=== PATIENT | female | born 1975 | race Caucasian/White ===

== ENCOUNTER 2021-03-17 09:18 | Day surgery (SDC) | payer BC ==
--- NOTE | 2021-03-17 09:06 | PCM.PREANE ---
Preanesthetic Assessment - Anesthesia/Transfusion/Family Hx Anesthesia History: Prior Anesthesia Without Reaction Transfusion History: No Prior Transfusion(s) - Review of Systems General: No Symptoms Pulmonary: No Symptoms Cardiovascular: No Symptoms Gastrointestinal: No Symptoms Neurological: Headache Other: Reports: None - Physical Assessment NPO Status Date: 03/17/21 NPO Status Time: 00:00 Height: 5 ft 3 in Weight: 189 lb ASA Class: 2 Mental Status: Alert & Oriented x3 Airway Class: Mallampati = 2 Dentition: Reports: Normal Dentition ROM/Head Extension: Full Lungs: Clear to Auscultation, Normal Respiratory Effort Cardiovascular: Regular Rate, Regular Rhythm - Lab Values: Laboratory Last Values WBC 6.71 K/uL (4.0-11.0) 03/17/21 08: RBC 4.63 M/uL (4.30-5.90) 03/17/21 08:26 Hgb 12.9 g/dL (12.0-16.0) 03/17/21 08: Hct 38.6 % (36.0-46.0) 03/17/21 08: MCV 83.4 fL (80.0-98.0) 03/17/21 08: MCH 27.9 pg (27.0-32.0) 03/17/21 08: MCHC 33.4 g/dL (31.0-37.0) 03/17/21 08:26 RDW Std Deviation 43.9 fl (28.0-62.0) 03/17/21 08:26 RDW Coeff of Jack 14 % (11.0-15.0) 03/17/21 08:26 Plt Count 327 K/uL (150-400) 03/17/21 08:26 MPV 10.40 fL (7.40-12.00) 03/17/21 08:26 Neut % (Auto) 57.5 % (48.0-80.0) 03/17/21 08: Lymph % (Auto) 31.9 % (16.0-40.0) 03/17/21 08:26 [place] % (Auto) 7.0 % (0.0-15.0) 03/17/21 08: Eos % (Auto) 3.0 % (0.0-7.0) 03/17/21 08:26 Baso % (Auto) 0.6 % (0.0-1.5) 03/17/21 08:26 Neut # (Auto) 3.9 K/uL (1.4-5.7) 03/17/21 08:26 Lymph # (Auto) 2.1 K/uL (0.6-2.4) 03/17/21 08:26 [place] # (Auto) 0.5 K/uL (0.0-0.8) 03/17/21 08:26 Eos # (Auto) 0.2 K/uL (0.0-0.7) 03/17/21 08:26 Baso # (Auto) 0.0 K/uL (0.0-0.1) 03/17/21 08:26 Nucleated RBC % 0.0 /100WBC 03/17/21 08:26 Nucleated RBCs # 0 K/uL 03/17/21 08:26 - Allergies Allergies/Adverse Reactions: Allergies Allergy/AdvReac Type Severity Reaction Status Date / Time No Known Allergies Allergy Verified 03/13/21 10:00 - Blood Blood Available: No - Acknowledgements Anesthesia Type Planned: General Anesthesia Pt an Appropriate Candidate for the Planned Anesthesia: Yes Alternatives and Risks of Anesthesia Discussed w Pt/Guardian: Yes Pt/Guardian Understands and Agrees with Anesthesia Plan: Yes PreAnesthesia Questionnaire HEENT History: Reports: Other (See Below) Other HEENT History: wears glasses Cardiovascular History: Reports: None Respiratory History: Reports: None Gastrointestinal History: Reports: Other (See Below) Other Gastrointestinal History: occasional heartburn Genitourinary History: Reports: Other (See Below) Other Genitourinary History: stress incontinence [employer]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: Musculoskeletal History: Reports: Fracture Neurological History: Reports: Migraines Psychiatric History: Reports: None Endocrine/Metabolic History: Reports: Obesity/BMI 30+ Hematologic History: Reports: None Immunologic History: Reports: None Oncologic (Cancer) History: Reports: None Dermatologic History: Reports: None - Past Surgical History Head Surgeries/Procedures: Reports: None HEENT Surgical History: Reports: Eye Surgery Other HEENT Surgeries/Procedures: hx ear surgery and eye surgery Cardiovascular Surgical History: Reports: None Respiratory Surgical History: Reports: None GI Surgical History: Reports: Cholecystectomy Female Surgical History: Reports: None Endocrine Surgical History: Reports: None Neurological Surgical History: Reports: None Musculoskeletal Surgical History: Reports: Other (See Below) Other Musculoskeletal Surgeries/Procedures:: sx for repair of fx right ankle Oncologic Surgical History: Reports: None Dermatological Surgical History: Reports: None - SUBSTANCE USE Tobacco Use Status *Q: Former Tobacco User Tobacco Use Within Last Twelve Months: No Recreational Drug Use History: No - HOME MEDS Home Medications: Home Meds Cholecalciferol (Vitamin D3) [Vitamin D3] 5,000 units PO DAILY 03/13/21 [History] Nutrafol 1 tab PO DAILY 03/13/21 [History] - CURRENT (IN HOUSE) MEDS Current Meds: Current Medications Albuterol (Albuterol 0.083% 2.5 Mg/3 Ml Neb Soln) 2.5 mg NEB ONETIME PRN PRN Reason: Wheezing Droperidol (Droperidol 5 Mg/2 Ml Sdv) 0.625 mg IVPUSH ONETIME PRN PRN Reason: Nausea/Vomiting Fentanyl (Fentanyl 100 Mcg/2 Ml Sdv) 50 mcg IVPUSH Q5M PRN PRN Reason: Pain (mild 1-3) Hydromorphone HCl (Hydromorphone 1 Mg/Ml Syringe) 1 mg IVPUSH Q10M PRN PRN Reason: Pain (moderate 4-6) Lactated Ringer's (Ringers, Lactated) 1,000 mls @ 125 mls/hr IV ASDIRECTED HAYLIE Metoclopramide HCl (Metoclopramide 10 Mg/2 Ml Sdv) 10 mg IVPUSH ONETIME PRN PRN Reason: Nausea/Vomiting Morphine Sulfate (Morphine 2 Mg/Ml Syringe) 2 mg IVPUSH Q10M PRN PRN Reason: Pain (severe 7-10) Naloxone HCl (Naloxone 0.4 Mg/Ml Syringe) 0.1 mg IVPUSH ASDIRECTED PRN PRN Reason: Respiratory Depression Ondansetron HCl (Ondansetron 4 Mg/2 Ml Sdv) 4 mg IVPUSH ONETIME PRN PRN Reason: Nausea/Vomiting Sodium Chloride (Sodium Chloride 0.9% 10 Ml Syringe) 10 ml FLUSH ASDIRECTED PRN PRN Reason: Keep Vein Open Sodium Chloride (Sodium Chloride 0.9% 2.5 Ml Syringe) 2.5 ml FLUSH ASDIRECTED PRN PRN Reason: Keep Vein Open Sodium Chloride (Sodium Chloride 0.9% 10 Ml Sdv) 10 ml IV ASDIRECTED PRN PRN Reason: IV Use Discontinued Medications Propofol (Diprivan 100 Ml) Confirm Administered Dose 100 mls @ as directed .ROUTE .STK-MED ONE Stop: 03/17/21 07:39 Cefazolin Sodium/Dextrose 2 gm (/ Premix) 50 mls @ 100 mls/hr IV ONETIME ONE Stop: 03/17/21 08:33 Lidocaine HCl (Lidocaine 2% 100 Mg/5 Ml Syringe) Confirm Administered Dose 100 mg .ROUTE .STK-MED ONE Stop: 03/17/21 07:38 Ondansetron HCl (Ondansetron 4 Mg/2 Ml Sdv) Confirm Administered Dose 4 mg .ROUTE .STK-MED ONE Stop: 03/17/21 08:31 Ondansetron HCl (Ondansetron 4 Mg/2 Ml Sdv) Confirm Administered Dose 4 mg .ROUTE .STK-MED ONE Stop: 03/17/21 08:31 Scopolamine (Scopolamine 1.5 Mg Transdermal Patch) Confirm Administered Dose 1.5 mg .ROUTE .STK-MED ONE Stop: 03/17/21 07:38
[~2021-03-17 09:18] MED LIST: Albuterol 0.083% 2.5 MG/3 ML Neb Soln NEB PRN; HYDROmorphone 1 MG/ML Syringe IVPUSH PRN; Lactated Ringers 1,000 ML IV SCH; Lidocaine 2% 100 MG/5 ML Syringe ONE; Metoclopramide 10 MG/2 ML SDV IVPUSH PRN; Morphine 2 MG/ML SYRINGE IVPUSH PRN; Naloxone 0.4 MG/ML Syringe IVPUSH PRN; Ondansetron 4 MG/2 ML SDV IVPUSH PRN; Ondansetron 4 MG/2 ML SDV ONE; Scopolamine 1.5 MG Transdermal Patch ONE; Sodium Chloride 0.9% 10 ML SDV IV PRN; Sodium Chloride 0.9% 10 ML Syringe FLUSH PRN; Sodium Chloride 0.9% 2.5 ML Syringe FLUSH PRN; ceFAZolin 2 GM in Premix Bag 1 BAG IV ONE; fentaNYL 100 MCG/2 ML SDV IVPUSH PRN; propofoL 100 ML ONE
[2021-03-17] MEDS ORDERED: Bupivacaine 0.25% 10 ML SDV ONE (11:17)
[2021-03-17] MEDS ORDERED: Bupivacaine 25%/EPINEPHrine/PF 30 ML ONE (11:21)
[2021-03-17] MEDS ORDERED: Midazolam 1 MG/ML 2 ML SDV ONE (13:15)
[2021-03-17] MEDS ORDERED: Octyl 2-Cyanoacrylate 1 Tube ONE (13:17)
[2021-03-17] MEDS ORDERED: Neomycin/Polymyxin B Bladder Irrigation 1 ML Amp ONE (13:17)
[2021-03-17] MEDS ORDERED: Ondansetron 4 MG/2 ML SDV ONE (14:34)
[2021-03-17] MEDS ORDERED: Ketorolac 30 MG/ML SDV ONE (14:34)
[2021-03-17] MEDS ORDERED: fentaNYL 100 MCG/2 ML SDV ONE (14:39)
--- NOTE | 2021-03-17 15:17 | PCM.OPNOTE ---
<Andreina Llamas - Last Filed: 03/17/21 15:24> - General Post-Op/Procedure Note Date of Surgery/Procedure: 03/17/21 Operative Procedure(s): Anterior posterior colporraphy with single incision mid urethral sling Pre Op Diagnosis: Vaginal prolapse Post-Op Diagnosis: Vaginal Prolapse Anesthesia Technique: General LMA Primary Surgeon: Mara Chacko Concrete Conveyor Operator: Andreina Llamas Fluid Replacement, Intraop: 600 EBL in mLs: 250 Complications: none Condition: Good Free Text/Narrative:: 42-year-old female presented due to vaginal prolapse. S/p incision site mid urethral sling. Surgery was uncomplicated. <Mara Chacko - Last Filed: 03/17/21 16:45> - General Post-Op/Procedure Note Operative Procedure(s): Single incision midurethral sling. Anterior Colporraphy. Posterior Colporraphy Findings: Normal sized anteverted Uterus Grade 1 Cystoceole Grade 1 rectoceole Anesthesia Provider: Damion Finney Pathology: vaginal wall Free Text/Narrative:: Intake & Output 03/17/21 03/17/21 03/17/21 06:59 14:59 22:59 Intake Total 600 Balance 600 Cystoceole , Rectocele and Stress incontinence
--- NOTE | 2021-03-17 15:17 | PCM.POSTAN ---
POST ANESTHESIA ASSESSMENT - MENTAL STATUS Mental Status: Alert, Oriented, Somnolent - VITAL SIGNS Vital Signs: Last Vital Signs Temp 98.2 F 03/17/21 09:45 Pulse 74 03/17/21 09:45 Resp 16 03/17/21 09:45 BP 132/85 03/17/21 09:45 Pulse Ox 98 03/17/21 09:45 - RESPIRATORY Respiratory Status: Respiratory Rate WNL, Airway Patent, O2 Saturation Stable - CARDIOVASCULAR CV Status: Pulse Rate WNL, Blood Pressure Stable - GASTROINTESTINAL GI Status: No Symptoms - POST OP HYDRATION Hydration Status: Adequate & Stable
--- NOTE | 2021-03-17 15:18 | PCM48HPAN ---
Post Anesthesia Note - EVALUATION WITHIN 48HRS OF ANESTHETIC Vital Signs in Normal Range: Yes Patient Participated in Evaluation: Yes Respiratory Function Stable: Yes Airway Patent: Yes Cardiovascular Function Stable: Yes Hydration Status Stable: Yes Pain Control Satisfactory: Yes Nausea and Vomiting Control Satisfactory: Yes Mental Status Recovered: Yes Vital Signs: Last Vital Signs Temp 98.2 F 03/17/21 09:45 Pulse 74 03/17/21 09:45 Resp 16 03/17/21 09:45 BP 132/85 03/17/21 09:45 Pulse Ox 98 03/17/21 09:45
--- NOTE | 2021-03-18 05:53 | OR ---
SURGEON: YENIFER HERNÁNDEZ DATE OF PROCEDURE: 03/17/2021 PREOPERATIVE DIAGNOSIS: A 45-year-old, para 2, with stress urinary incontinence and stage I cystocele and stage I rectocele. PROCEDURE: Single-incision midurethral sling, anterior and posterior colporrhaphy with perineorrhaphy. ESTIMATED BLOOD LOSS: 250. IV FLUID: 700. URINE OUTPUT: Minimal. NOTES AND FINDINGS: Normal-sized anteverted uterus. Mild cystocele. Mild rectocele. BRIEF HISTORY ABOUT THE PATIENT: She is a 45-year-old para 2, who has mixed urinary incontinence. She was complaining of loss of urine with stress and sneezing and also some urgency, and the need to wear a panty liners. She also complained of some fullness around the vaginal area and she wanted an anterior and posterior repair. The patient was given the option to continue conservative management with Kegel exercises versus midurethral sling. She decided to have a midurethral sling. She was explained the risks, benefits, and alternatives. The risks of midurethral sling include urgency, damage to the bladder or bowel, mesh erosion, need of reoperation, continued stress incontinence, and frequent UTIs. She was also explained the risks of anterior-posterior repair with maybe dyspareunia and shortened vagina. The patient was given the opportunity to ask questions. All questions were answered, and she decided to proceed. DESCRIPTION OF PROCEDURE: The patient was taken to the operating room, where general anesthesia was performed without difficulty. She was prepared and draped in the dorsal lithotomy position with Madhav stirrups. The bladder was drained, and the Cool was left in place. Then a 2 cm incision was made in the anterior vaginal wall at the level of the midurethra. The vaginal epithelium was then bilaterally undermined and from the endopelvic fascia using sharp dissection to the level of the inferior pubic rami. This created the pathway for the delivery of the sling device. The tip of the device was then placed into the mesh tip carrier. The deployment mechanism was inserted into the dissected pathway at a 45-degree angle and used to pass the distal anchors to the obturator internus muscle behind the pubic rami. The anchor was advanced to the midpoint. Once the position was optimized, the anchoring carrier was deployed from the trocar by stabilizing the delivery trocar with one hand and pulling the device with the opposite hand. This was repeated in a similar fashion on the opposite side, and the mesh was deposited into the obturator internal muscle, and the sling was reported to rest at the level of the midurethra without tension. The surgeon verified the mesh was not twisted prior to deployment of the second mesh. Before the procedure, the plane was injected with 0.25% Marcaine and lidocaine with epi. The after the sling was deployed, the vaginal mucosa was closed with 2-0 Vicryl in a continuous locking fashion. Then, attention was placed to the anterior vaginal wall close to the uterus. The 3 cm incision was made after hydrodissection with Marcaine and lidocaine. The midline incision was made with a size 11 scalpel. With the Metzenbaum scissors, the muscularis layer was from the underlying vaginal mucosa and dissected towards the inferior pubic rami with some dissection done on the right and on the left side. The muscularis layer was reapproximated in the midline with multiple interrupted mattress suture of 2-0 Polysorb. When this was done, the bladder was carefully retracted back in a cephalad manner. Then, the redundant vaginal mucosa was trimmed with the labia minor being the level of reference. The vaginal mucosa was then closed with 2-0 Vicryl in a continuous locking fashion. The incision appeared hemostatic after the procedure. Attention was then placed to the perineum, where a triangular incision was made in the perineum and the skin was removed with the Metzenbaum scissors. Then, a 2 cm to 3 cm midline incision was made around the posterior fourchette and the 2 cm incision was undermined to the vagina. With this done, the supporting perineal tissue was then dissected off the vaginal mucosa on the right and on the left side. With the muscularis layer being dissected off the rectus muscle, the rectocele was repaired with a pursestring suture anchoring the mucosa from above to below, and this helped to push back the rectocele. When this was done, the excess tissue was trimmed on the right and the left side. The underlying muscle was then closed with 2-0 Vicryl. The vaginal mucosa was closed with 2-0 Vicryl. The perineum was then closed in layers. Then, the skin above was closed with 2-0 Vicryl in a continuous fashion. The incisions of the anterior colporrhaphy, posterior colporrhaphy, and a bladder sling were hemostatic. The bladder was filled with 100 mL of diluted neomycin solution, and Valsalva was done, and the incontinence was confirmed. Crede maneuver was also performed and incontinence was confirmed. Then, the catheter was removed. The patient will go home after spontaneous void and confirmation of low postvoid residual. All instrument and pad counts were correct x2. ALLIE / DELLA /[id number]
== END 2021-03-17 17:00 | disposition home or self-care (01) ==
LOC: MW.SDS 09:18 → MW.OB 09:27 → MW.SDS 17:00
PROVIDERS: ATTEND Obstetrics & Gynecology
DX: N81.2 Incomplete uterovaginal prolapse (principal); N39.46 Mixed incontinence; Z87.891 Personal history of nicotine dependence; Z01.812 Encounter for preprocedural laboratory examination; Z20.822 Contact with and (suspected) exposure to COVID-19
CPT/HCPCS: 36415; 57260; 57288; 84703; 85025; 86850; 86900; 86901; 87635; 88305; A9270; C1771; J0131; J1885; J2250; J2405; J2704; J3010; J7120; 00942; J3490; U0002